=== PATIENT | male | born 1955 | race Caucasian/White ===

== ENCOUNTER 2019-06-21 10:18 | Outpatient (CLI) | END 2019-06-21 23:59 | disposition home or self-care (01) | LOC: STAR 10:18 | PROVIDERS: ATTEND Student in an Organized Health Care Education/Training Program | DX: Z02.9 Encounter for administrative examinations, unspecified (principal) ==

== ENCOUNTER 2019-07-10 08:26 | Outpatient (CLI) | payer OTHER | END 2019-07-10 23:59 | disposition home or self-care (01) | LOC: RAD 08:26 | PROVIDERS: ATTEND Student in an Organized Health Care Education/Training Program | DX: R97.20 Elevated prostate specific antigen [PSA] (principal); N99.89 Other postprocedural complications and disorders of genitourinary system; Z90.79 Acquired absence of other genital organ(s) | CPT/HCPCS: 51600; 74430; Q9958 ==

== ENCOUNTER 2019-09-25 19:32 | Day surgery (SDC) | payer OTHER ==
[~2019-09-25] VITALS: Ht 188 cm; Wt 99.7 kg
[2019-09-25] MEDS ORDERED: SODIUM CHLORIDE FLUSH 10ML SYR IVF ONE (20:30)
--- NOTE | 2019-09-25 20:31 | NUR ---
PT HERE WITH C/O URINARY RETENTION. PT STATES HE HAS BEEN SEEN MULTIPLE TIMES FOR THIS AND HAS A UROLOGIST. 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 THIS RN ATTEMPTED [place] X 1, UNABLE TO ADVANCE CATHETER PAST TIP OF PENIS WITHOUT EXTREME RESISTENCE AND PAIN TO PT. PT STATES THIS HAS HAPPENED BEFORE. SUPERVISING FIRE MARSHAL NOTIFIED AND PT MOVED TO CORE ROOM. REPORT GIVEN TO OUMAR TENORIO.
[2019-09-25 20:56] LABS: BASOPHILS # (AUTO) 0.06 x10^3/uL (0-0.1); BASOPHILS % (AUTO) 1 % (0-1); EOSINOPHILS # (AUTO) 0.27 x10^3/uL (0-0.4); EOSINOPHILS % (AUTO) 2 % (1-7); LYMPHOCYTES # (AUTO) 2.04 x10^3/uL (1-3.4); LYMPHOCYTES % (AUTO) 16 % (22-44); MD NO; MEAN CORPUSCULAR HEMOGLOBIN 29.6 pg (27.5-34.5); MEAN CORPUSCULAR HGB CONC 33.4 g/dL (33.2-36.2); MEAN CORPUSCULAR VOLUME 88.4 fL (81-97); MEAN PLATELET VOLUME 9.2 fL (7.4-10.4); MONOCYTES # (AUTO) 0.71 x10^3/uL (0.2-0.8); MONOCYTES % (AUTO) 6 % (2-9); NEUTROPHILS # (AUTO) 9.56 x10^3/uL (1.8-6.8); NEUTROPHILS % (AUTO) 76 % (42-75); PLATELET COUNT 229 x10^3/uL (130-400); RED BLOOD COUNT 5.28 x10^6/uL (4.38-5.82); RED CELL DISTRIBUTION WIDTH 13.8 % (9.4-14.8)
--- NOTE | 2019-09-25 21:03 | NUR ---
PER SLIME GREGORIO TO COM IN IN 2 HOURS AND PT TO GO TO OR PT INSTRUCTED ON NPO, PIV PLACED AT BS
[2019-09-25 21:08] LABS: ALANINE AMINOTRANSFERASE 36 U/L (12-78); ALBUMIN 4.6 g/dL (3.4-5.0); ANION GAP 6 mmol/L (5-15); CALCIUM 9.2 mg/dL (8.5-10.1); CHLORIDE 106 mmol/L (98-107); CREATININE 1.07 mg/dL (0.7-1.3)
[2019-09-25 21:10] LABS: ALKALINE PHOSPHATASE 43 U/L (45-117); BILIRUBIN,TOTAL 0.5 mg/dL (0.2-1.0); TOTAL PROTEIN 8.3 g/dL (6.4-8.2)
[2019-09-25] MEDS ORDERED: ONDANSETRON 2MG/ML, 2ML IVPush ONE (21:30)
[2019-09-25] MEDS ORDERED: MORPHINE SULFATE 4 MG/ML, 1ML ONE ×2 (21:42→22:23)
[2019-09-25] MEDS ORDERED: ONDANSETRON 2MG/ML, 2ML ONE (21:42)
[2019-09-25 21:50] VITALS: BP 133/76
[2019-09-25] MEDS: MORPHINE SULFATE 4 MG/ML, 1ML IVPush PRN ×2 (21:50→22:28)
--- NOTE | 2019-09-25 21:51 | NUR ---
DR ANDREWS AT BS PREFORMED BLADDER US AT THIS TIME MEDICATED FOR PAIN
[2019-09-25] MEDS ORDERED: PLEASE ENTER ALLERGIES MC SCH (22:00)
--- NOTE | 2019-09-25 22:28 | NUR ---
REPORT TO SURGERY
[2019-09-25] MEDS ORDERED: PROMETHAZINE 25 MG/ML, 1ML IV PRN (23:30)
[2019-09-25] MEDS ORDERED: FENTANYL PF 250 MCG/5ML ONE (23:30)
[2019-09-25] MEDS ORDERED: HYDROmorphone 2 MG/ML, 1ML IVPush PRN (23:30)
[2019-09-25] MEDS ORDERED: OXYcodone 5 MG/5 ML ORAL.SOL UDC PO PRN (23:30)
[2019-09-25] MEDS ORDERED: LABETALOL 5MG/ML, 20ML IV PRN (23:30)
[2019-09-25] MEDS ORDERED: MEPERIDINE/PF 25MG/ML,1ML IVPush PRN (23:30)
[2019-09-25] MEDS ORDERED: FENTANYL PF 100 MCG/2ML IV PRN (23:30)
[2019-09-25] MEDS ORDERED: hydrALAzine 20 MG/ML, 1ML IV PRN (23:30)
[2019-09-25] MEDS ORDERED: HALOPERIDOL 5 MG/ML IV PRN (23:30)
[2019-09-26] MEDS ORDERED: PROPOFOL 10 MG/ML, 20ML ONE (00:07)
[2019-09-26] MEDS ORDERED: DEXAMETHASONE 4 MG/ML, 1ML ONE (00:07)
[2019-09-26] MEDS ORDERED: ONDANSETRON 2MG/ML, 2ML ONE (00:07)
[2019-09-26] MEDS ORDERED: CEFAZOLIN 1,000 MG ONE (00:07)
[2019-09-26] MEDS ORDERED: OXYcodone 5 MG/5 ML ORAL.SOL UDC ONE (00:28)
[2019-09-26] MEDS ORDERED: FENTANYL PF 100 MCG/2ML ONE (00:28)
[2019-09-26] MEDS ORDERED: OXYC-302 PO (01:19)
== END 2019-09-26 02:32 | disposition home or self-care (01) ==
LOC: ED 21:56 → OR 22:45 → ED 22:45 → 4NE 09-26 01:10 → ED 09-26 01:10 → 4NE 09-26 02:32 → OR 09-26 02:32 → ED 09-26 02:32
PROVIDERS: ATTEND Emergency Medicine
DX: N99.115 Postprocedural fossa navicularis urethral stricture (principal); R33.8 Other retention of urine; I10 Essential (primary) hypertension; Z90.79 Acquired absence of other genital organ(s)
CPT/HCPCS: 36415; 52281; 80053; 85025; 96374; 96375; 96376; 99284; C1769; J0690; J1100; J2270; J2405; J2704; J3010; G0378